=== PATIENT | male | born 1965 | race Caucasian/White ===

== ENCOUNTER 2025-02-27 21:24 | Emergency (ER) | payer MEDICARE ==
[~2025-02-27] VITALS: Ht 193 cm; Wt 90.9 kg
[2025-02-27 22:15] LABS: BASO # 0.2 10^3/uL (0.0-0.2); BASO % 1.4 % (0.0-1.0); EOS # 0.9 10^3/uL (0.0-0.5); EOS % 7.3 % (0.0-3.0); HEMATOCRIT 47.1 % (42.0-52.0); HEMOGLOBIN 16.4 g/dl (13.5-17.5); LYMPH # 4.6 10^3/uL (1.5-5.0); LYMPH % 36.5 % (24.0-44.0); MEAN CORPUSCULAR HEMOGLOBIN 30.3 pg (27.0-33.0); MEAN CORPUSCULAR HGB CONC 34.8 g/dl (32.0-36.5); MEAN CORPUSCULAR VOLUME 87.1 fl (80.0-96.0); MONO # 1.1 10^3/uL (0.0-0.8); NEUTROPHILS # 5.8 10^3/uL (1.5-8.5); NEUTROPHILS % 45.6 % (36.0-66.0); PLATELET COUNT, AUTOMATED 326 10^3/uL (150-450); RED BLOOD COUNT 5.41 10^6/uL (4.30-6.10); WHITE BLOOD COUNT 12.6 10^3/uL (4.0-10.0)
[2025-02-27 22:26] LABS: INR 0.89; PROTHROMBIN TIME 12.4 SECONDS (12.5-14.5)
[2025-02-27 22:40] LABS: LIPASE 33 U/L (12-53)
[2025-02-27 22:42] LABS: ALBUMIN 3.9 G/DL (3.2-5.2); ALKALINE PHOSPHATASE 78 U/L (40-129); ALT/SGPT 26 U/L (7.0-40); AST/SGOT 20 U/L (<34); BILIRUBIN,DIRECT < 0.1 MG/DL (<0.4); BILIRUBIN,TOTAL 0.3 MG/DL (0.3-1.2); BLOOD UREA NITROGEN 17 MG/DL (9-23); CALCIUM LEVEL 9.6 MG/DL (8.5-10.1); CARBON DIOXIDE LEVEL 27 MMOL/L (20-31); CHLORIDE LEVEL 103 MMOL/L (98-107); CK-MB VALUE MASS < 1.0 NG/ML (<3.6); CREATININE FOR GFR 0.93 MG/DL (0.70-1.30); GLOMERULAR FILTRATION RATE > 60.0 (>56); GLUCOSE, FASTING 86 MG/DL (60-100); POTASSIUM SERUM 4.4 MMOL/L (3.5-5.1); SODIUM LEVEL 138 MMOL/L (136-145); TOTAL PROTEIN 7.4 G/DL (5.7-8.2)
[2025-02-27 22:43] LABS: CPK CREATINE PHOSPHOKINASE 88 U/L (46-171); MB/CK RELATIVE INDEX 1.13 (< OR =4)
[2025-02-27 23:34] LABS: CK-MB VALUE MASS < 1.0 NG/ML (<3.6)
[2025-02-27 23:38] LABS: CPK CREATINE PHOSPHOKINASE 84 U/L (46-171); MB/CK RELATIVE INDEX 1.19 (< OR =4)
[2025-02-27] MEDS ORDERED: ISOVUE-370 76% 100ML VIAL As Ordered ONE (23:49)
[2025-02-28] MEDS: FAMOTIDINE 20MG/2ML VIAL IVP ONE (00:23)
[2025-02-28] MEDS ORDERED: PEPC1TAB5 PO (00:53)
[2025-02-28 01:00] VITALS: BP 117/84; TEMP 97.8; O2SAT 95
== END 2025-02-28 01:14 | disposition home or self-care (01) ==
LOC: M ED 21:24
DX: R07.89 Other chest pain (principal); R12 Heartburn; Q40.1 Congenital hiatus hernia
CPT/HCPCS: 71046; 71275; 80048; 80076; 82550; 82553; 83690; 84484; 85025; 85610; 87486; 87581; 87633; 87798; 93005; 96374; 99284; J1308; Q9967